=== PATIENT | male | born 1960 | race African-American/Black ===

== ENCOUNTER 2021-07-01 13:29 | Emergency (ER) | payer BC ==
[2021-07-01 13:46] VITALS: BP 131/92; PULSE 87; TEMP 98; BMI 33.5
== END 2021-07-01 14:38 | disposition home or self-care (01) ==
LOC: JERFT 13:29
DX: M25.511 Pain in right shoulder (principal)
CPT/HCPCS: 73030-TC-RT-FY; 99284-25

== ENCOUNTER 2024-03-03 09:43 | Emergency (ER) | payer BC ==
[2024-03-03 09:47] VITALS: BMI 33.5
[2024-03-03] MEDS ORDERED: ACETAMINOPHEN 500 MG TABLET (FP) ONE (10:26)
[2024-03-03] MEDS: ACETAMINOPHEN 500 MG TABLET (FP) PO ONE (10:28)
[2024-03-03 10:35] VITALS: BP 161/93; PULSE 76; RESP 16; TEMP 98
== END 2024-03-03 10:40 | disposition home or self-care (01) ==
LOC: JERFT 09:43
DX: M25.561 Pain in right knee (principal); M25.562 Pain in left knee; M25.461 Effusion, right knee
CPT/HCPCS: 99283-25